=== PATIENT | female | born 1930 | race Caucasian/White ===

== ENCOUNTER 2020-08-19 18:21 | Inpatient (IN) | payer MEDICARE, OTHER ==
[~2020-08-19] VITALS: Ht 167.6 cm; Wt 66.2 kg
[~2020-08-19 18:21] MED LIST: PIPERACILLIN SODIUM/TAZOBACTAM 3.375 G in IV DEXTROSE 5% 50 ML IV SCH
[2020-08-19] MEDS ORDERED: VANCOMYCIN IV 1,000 MG in IV DEXTROSE 5% 250 ML IV ONE (18:30)
[2020-08-19] MEDS ORDERED: IV NORMAL SALINE 1000 ML BAG IV ONE (18:30)
[2020-08-19] MEDS ORDERED: PIPERACILLIN SODIUM/TAZOBACTAM 3.375 G in IV DEXTROSE 5% 50 ML IV ONE (18:30)
[2020-08-19] MEDS ORDERED: ZOLP5TAB2 GT (18:41)
[2020-08-19] MEDS ORDERED: ZINC SULFATE GT (18:41)
[2020-08-19] MEDS ORDERED: MULT-594 GT (18:41)
[2020-08-19] MEDS ORDERED: NA P133E RC (18:41)
[2020-08-19] MEDS ORDERED: DOCU-141 GT (18:41)
[2020-08-19] MEDS ORDERED: LINE600I9 IV (18:41)
[2020-08-19] MEDS ORDERED: CEFT1FRO2 IV (18:41)
[2020-08-19] MEDS ORDERED: [UNRECOGNIZED DRUG - CODE] TOP (18:41)
[2020-08-19] MEDS ORDERED: ONDANSETRON IV (18:41)
[2020-08-19] MEDS ORDERED: ACET-2154 GT (18:41)
[2020-08-19] MEDS ORDERED: ASCO500P18 GT (18:41)
[2020-08-19] MEDS ORDERED: COLL1POW2 TOP (18:41)
[2020-08-19] MEDS ORDERED: VANCOMYCIN IV 200 ML ONE (18:50)
[2020-08-19] MEDS ORDERED: PIPERACILLIN/TAZOBACTAM/D5W 50 ML IV ONE (18:50)
[2020-08-19 19:03] LABS: HEMATOCRIT 32.6 % (31.2-41.9); MEAN CORPUSCULAR HEMOGLOBIN 29.8 uug (24.7-32.8); MEAN CORPUSCULAR VOLUME 91.8 fL (75.5-95.3); PLATELET COUNT (AUTO) 197 K/uL (179-408)
[2020-08-19 19:10] LABS: CARBON DIOXIDE 28 mmol/L (21-32); CHLORIDE 106 mmol/L (98-107); CREATININE 0.5 mg/dL (0.6-1.3); GLUCOSE 148 mg/dL (74-106); POTASSIUM 4.2 mmol/L (3.5-5.1); UREA NITROGEN, BLOOD 19 mg/dL (7-18)
[2020-08-19 19:24] LABS: *BILIRUBIN,URIN NEGATIVE (NEGATIVE); *BLOOD, URINE 1+ (NEGATIVE); *CLARITY,URINE CLEAR (CLEAR); *COLOR,URINE YELLOW (YELLOW); *KETONES,URINE NEGATIVE (NEGATIVE); LEUKOCYTE ESTERASE ,URINE NEGATIVE (NEGATIVE); NITRITE, URINE NEGATIVE (NEGATIVE); PH,URINE 5.5 (5.0-8.0); UGLUCOSE NEGATIVE (NEGATIVE)
[2020-08-19 19:27] LABS: ALANINE AMINOTRANSFERASE 14 U/L (14-59); ALKALINE PHOSPHATASE 148 U/L (50-136); ASPARTATE AMINOTRANSFERASE 19 U/L (15-37); BILIRUBIN,DIRECT 0.1 mg/dL (0.0-0.2); BILIRUBIN,TOTAL 0.3 mg/dL (0.2-1.0); TOTAL PROTEIN, SERUM 5.6 g/dL (6.4-8.2)
[2020-08-19 19:33] LABS: BACTERIA,URINE NONE SEEN /HPF (NONE SEEN); SQUAMOUS EPITHELIAL CELL,UR MODERATE /HPF (NONE SEEN); WBC,URINE 0-3 /HPF (0-3)
--- NOTE | 2020-08-19 21:09 | NUR ---
Pt. admitted to Telemetry, under care of Dr. Valle. Diagnosis: Altered LOC/Neutrophilia/Possible Pneumonitis Belongs List completed. MRSA swab done.
--- NOTE | 2020-08-19 22:21 | NUR ---
Report given. Pt going to Room 306.
[2020-08-19] MEDS ORDERED: ONDANSETRON 4 MG/2 ML VIAL IV PRN (22:30)
[2020-08-19] MEDS ORDERED: ACETAMINOPHEN 650 MG SUPP.RECT RC PRN (22:30)
[2020-08-19] MEDS ORDERED: MORPHINE SULFATE 2 MG/1 ML DISP.SYRIN IV PRN (22:30)
[2020-08-19 23:00] VITALS: BP 138/63
[2020-08-19] MEDS ORDERED: PIPERACILLIN/TAZOBACTAM/D5W 100 ML IV ONE (23:34)
[2020-08-19] MEDS: PIPERACILLIN SODIUM/TAZOBACTAM 3.375 G in IV DEXTROSE 5% 50 ML IV SCH (23:56)
[2020-08-20 04:00] VITALS: BP 105/55
[2020-08-20] MEDS: PIPERACILLIN SODIUM/TAZOBACTAM 3.375 G in IV DEXTROSE 5% 50 ML IV SCH ×3 (06:05→17:27)
[2020-08-20 07:18] LABS: HEMATOCRIT 28.6 % (31.2-41.9); MEAN CORPUSCULAR HEMOGLOBIN 30.1 uug (24.7-32.8); MEAN CORPUSCULAR VOLUME 91.3 fL (75.5-95.3); PLATELET COUNT (AUTO) 171 K/uL (179-408)
[2020-08-20 07:35] LABS: IRON, SERUM 18 ug/dL (50-175)
[2020-08-20 07:45] LABS: THYROID STIMULATING HORMONE 6.469 mIU/mL (0.358-3.740)
[2020-08-20 07:49] LABS: ALANINE AMINOTRANSFERASE 17 U/L (14-59); ALKALINE PHOSPHATASE 134 U/L (50-136); ASPARTATE AMINOTRANSFERASE 27 U/L (15-37); BILIRUBIN,TOTAL 0.4 mg/dL (0.2-1.0); CARBON DIOXIDE 29 mmol/L (21-32); CHLORIDE 107 mmol/L (98-107); CHOLESTEROL 99 mg/dL (<200); CREATININE 0.5 mg/dL (0.6-1.3); GLUCOSE 106 mg/dL (74-106); HDL CHOLESTEROL 33 mg/dL (40-60); MAGNESIUM 2.1 mg/dL (1.8-2.4); PHOSPHOROUS 2.8 mg/dL (2.5-4.9); POTASSIUM 4.1 mmol/L (3.5-5.1); TOTAL PROTEIN, SERUM 4.9 g/dL (6.4-8.2); TRIGLYCERIDES 70 MG/DL (30-150); UREA NITROGEN, BLOOD 14 mg/dL (7-18)
--- NOTE | 2020-08-20 08:00 | NUR ---
PATIENT SLIGHTLY DIFFICULT TO AROUSE BUT RESISTANCE NOTED WHEN TURNED TO SIDES, SKIN WARM AND DRY, SR ON MONITOR. VS WNL. WILL CONTINUE TO OBSERVE
[2020-08-20] MEDS: PANTOPRAZOLE SODIUM 40 MG VIAL IV SCH (08:20)
--- NOTE | 2020-08-20 11:36 | NUR ---
WOUND CARE CONSULT; PT PRESENTS WITH SACRAL SCARRING, RT HIP STAGE 4 PURULENT ULCER,PRESENT ON ADMISSION. RECOMMENDATIONS MADE FOR SKIN PROTECTION AND WOUND CARE. DR SAMUELS NOTIFIED OF SURGICAL CONSULT REQUEST. DISCUSSED WOUND TREATMENT WITH KARLEY RYAN [facility] ON ORDER. IN AGREEMENT WITH PLAN OF CARE. Addendum: 08/20/20 at 1138 by KATELYN LLAMAS RN Amended: Links added.
[2020-08-20] MEDS ORDERED: JEVITY 1.2 1000 ML LIQUID GT PRN (11:45)
[2020-08-20 11:50] VITALS: BP 111/57
[2020-08-20] MEDS: MINERAL OIL/PETROLATUM,WHITE 57 GM TUBE TOP SCH (12:59)
[2020-08-20] MEDS: SODIUM HYPOCHLORITE 0.125% (QUARTER STRENGTH) 473 ML BOTTLE TP SCH (12:59)
[2020-08-20 13:33] LABS: BAND % (MANUAL) 1 % (0-10); EOSINOPHILS % (MANUAL) 1 % (0-8); LYMPHOCYTES % (MANUAL) 8 % (20-40); MONOCYTES % (MANUAL) 16 % (2-10); NEUTROPHILS % (MANUAL) 74 % (42-75)
[2020-08-20] MEDS ORDERED: LIDOCAINE 1%-EPI 1:100,000 20 ML VIAL IJ PRN (14:19)
[2020-08-20] MEDS ORDERED: SILVER NITRATE APPLICATOR STICK EACH TP PRN (14:30)
--- NOTE | 2020-08-20 14:30 | NUR ---
NOTED DAUGHTER IN THE ROOM AND SPOKE WITH REVENUE AGENT MODESTO ABOUT DC PLAN SEE NOTES
[2020-08-20 16:00] VITALS: BP 113/43
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
--- NOTE | 2020-08-20 17:41 | NUR ---
APS STAFF CAME BY AND SAW PATIENT, SPOKE WITH BRIONNA PELLETIER SEE NOTES
--- NOTE | 2020-08-20 19:30 | NUR ---
RECEIVED PT AWAKE IN BED. PT IN NO ACUTE DISTRESS. IV INTACT. PEG TUBE INTACT AND PT TOLERATING THE FEEDING WELL. ZACARIAS INTACT AND DRAINING YELLOW COLORED URINE. SAFETY AND COMFORT PROVIDED. WILL CONTINUE TO MONITOR.
--- NOTE | 2020-08-20 19:31 | NUR ---
Noted to have bruises bilateral arms. Scabs on right arm. Bilateral legs skin dryness. Redness on chest. Mónica Hermosillo saw the pt and did wound treatment. Pt stable.
[2020-08-20 20:03] VITALS: BP 113/48
[2020-08-20] MEDS: VANCOMYCIN IV 750 MG in IV DEXTROSE 5% 250 ML IV SCH (20:06)
[2020-08-20] MEDS ORDERED: BISACODYL 10 MG SUPP.RECT RC PRN (21:00)
[2020-08-20] MEDS: ACIDOPHILUS/BULGARICUS CHEW TAB GT SCH (21:49)
[2020-08-21] MEDS: PIPERACILLIN SODIUM/TAZOBACTAM 3.375 G in IV DEXTROSE 5% 50 ML IV SCH ×3 (00:55→16:37)
[2020-08-21 04:03] VITALS: BP 123/54
[2020-08-21] MEDS: LEVOTHYROXINE SODIUM 25 MCG TABLET GT SCH (06:00)
--- NOTE | 2020-08-21 06:05 | NUR ---
PT SLEPT INTERMITTENTLY. PT IN NO ACUTE DISTRESS. PRESCRIBED MEDICATION GIVEN AND PT TOLERATED IT WELL. MORPHINE 2MG PRN GIVEN AT 2008H FOR PAIN.ZACARIAS DRAINING WELL. GTUBE FEEDING TOLERATING WELL FROM 20 NOW TO 60CC/HR. PT STABLE. SAFETY AND COMFORT PROVIDED. ALL NEEDS ARE MET. WILL ENDORSE TO INCOMING NURSE FOR CONTINUITY OF CARE.
[2020-08-21 06:53] LABS: HEMATOCRIT 28.6 % (31.2-41.9); MEAN CORPUSCULAR HEMOGLOBIN 30.3 uug (24.7-32.8); MEAN CORPUSCULAR VOLUME 90.6 fL (75.5-95.3); PLATELET COUNT (AUTO) 169 K/uL (179-408)
[2020-08-21 07:01] LABS: ALANINE AMINOTRANSFERASE 17 U/L (14-59); ALKALINE PHOSPHATASE 135 U/L (50-136); ASPARTATE AMINOTRANSFERASE 22 U/L (15-37); BILIRUBIN,TOTAL 0.4 mg/dL (0.2-1.0); CARBON DIOXIDE 31 mmol/L (21-32); CHLORIDE 107 mmol/L (98-107); CREATININE 0.5 mg/dL (0.6-1.3); GLUCOSE 106 mg/dL (74-106); PHOSPHOROUS 3.3 mg/dL (2.5-4.9); POTASSIUM 4.2 mmol/L (3.5-5.1); TOTAL PROTEIN, SERUM 4.9 g/dL (6.4-8.2); UREA NITROGEN, BLOOD 13 mg/dL (7-18)
--- NOTE | 2020-08-21 08:00 | NUR ---
MORE AWAKE AND RESPONSIVE WITH TOUCH OR VERBAL STIMULI, NO SIGNS OF DISTRESS OR SOB. TOLERATING FEEDING WELL. CONTINUE WITH IV ANTIBIOTIC NO ADVERSE REACTION NOTED
[2020-08-21] MEDS: PANTOPRAZOLE SODIUM 40 MG VIAL IV SCH (08:12)
[2020-08-21] MEDS: ZINC SULFATE 220 MG CAPSULE GT SCH (08:12)
[2020-08-21] MEDS: PROTEIN SUPPLEMENT (PROSTAT) 30 ML LIQUID GT SCH ×3 (08:13→16:42)
[2020-08-21] MEDS: ASCORBIC ACID 500 MG TABLET GT SCH (08:13)
[2020-08-21] MEDS: ACIDOPHILUS/BULGARICUS CHEW TAB GT SCH ×2 (08:13→21:37)
[2020-08-21] MEDS: SODIUM HYPOCHLORITE 0.125% (QUARTER STRENGTH) 473 ML BOTTLE TP SCH (08:14)
[2020-08-21] MEDS: MINERAL OIL/PETROLATUM,WHITE 57 GM TUBE TOP SCH (08:16)
[2020-08-21 11:00] VITALS: BP 135/57
--- NOTE | 2020-08-21 12:00 | NUR ---
AFEBRILE COMPLETE BED BATH DONE AFTER WOUND CARE. NOTED WOUND WITH MODERATE YELLOW DRAINAGE PACKED WITH DAKINS SOLUTION ORDERED
[2020-08-21] MEDS: JEVITY 1.2 1000 ML LIQUID GT PRN ×2 (12:21→17:38)
[2020-08-21 14:15] LABS: BAND % (MANUAL) 2 % (0-10); EOSINOPHILS % (MANUAL) 2 % (0-8); LYMPHOCYTES % (MANUAL) 5 % (20-40); MONOCYTES % (MANUAL) 19 % (2-10); NEUTROPHILS % (MANUAL) 72 % (42-75)
[2020-08-21 16:00] VITALS: BP 143/61
--- NOTE | 2020-08-21 18:33 | NUR ---
NO ACUTE CHANGE FROM MORNING ASSESSMENT, TOLERATING FEEDING AT 70 MLS/HR. CONTINUE IV ANTIBIOTIC NO SS OF ALLERGY REACTION. AIR MATTRESS IN PLACE
--- NOTE | 2020-08-21 19:30 | NUR ---
RECEIVED PT AWAKE, ALERT AND ORIENTEDX2. DAUGHTER AT BEDSIDE. PT IN NO ACUTE DISTRESS. IV INTACT,. ZACARIAS INTACT AND DRAINING WELL. GTUBE FEEDING ONGOING AND PT TOLERATING WELL. SAFETY AND COMFORT PROVIDED. WILL CONTINUE TO MONITOR.
[2020-08-21] MEDS: VANCOMYCIN IV 750 MG in IV DEXTROSE 5% 250 ML IV SCH (19:51)
[2020-08-21 20:06] VITALS: BP 144/75
[2020-08-21] MEDS: ACETAMINOPHEN 650 MG/20.3 ML LIQUID UDC GT PRN (22:00)
[2020-08-22] MEDS: PIPERACILLIN SODIUM/TAZOBACTAM 3.375 G in IV DEXTROSE 5% 50 ML IV SCH ×3 (00:56→16:54)
[2020-08-22 05:20] VITALS: BP 139/64
[2020-08-22] MEDS: PANTOPRAZOLE ORAL SUSPENSION 40 MG SUSPDR.PKT GT SCH (05:28)
[2020-08-22] MEDS: LEVOTHYROXINE SODIUM 25 MCG TABLET GT SCH (06:23)
--- NOTE | 2020-08-22 06:26 | NUR ---
PT SLEPT INTERMITTENTLY. PT IN NO ACUTE DISTRESS. DR. BARBOZA ORDERED TYLENOL PRN 650 MG LIQUID FOR PT. [place] [id number] TYLENOL PRN GIVEN TO PT. PT TOLERATED IT WELL. PRESCRIBED MEDICATION GIVEN AND PT TOLERATED IT WELL. IV INTACT. ZACARIAS CATHETER INTACT AND DRAINING WELL. PT TURNED AND REPOSITIONED. WOUND DRESSING CHANGED. GTUBE FEEDING OFF AT 0600H AND ON AT 0800H. PT TOLERATING GTUBE FEEDING. PT STABLE. PT PLEASANTLY CONFUSED AND REDIRECTABLE. SAFETY AND COMFORT PROVIDED. WILL ENDORSE TO INCOMING NURSE FOR CONTINUITY OF CARE.
[2020-08-22 07:04] LABS: HEMATOCRIT 27.6 % (31.2-41.9); MEAN CORPUSCULAR HEMOGLOBIN 30.4 uug (24.7-32.8); MEAN CORPUSCULAR VOLUME 90.1 fL (75.5-95.3); PLATELET COUNT (AUTO) 165 K/uL (179-408)
--- NOTE | 2020-08-22 07:20 | NUR ---
RECEIVED RESTING BUT EASILY AROUSABLE AND RESPONSIVE. HOB ELEVATED. GARBLED SPEECH. IN NO ACUTE DISTRESS. GT INTACT AND PATENT. ZACARIAS CATHETER DRAINING YELLOW URINE. IV INTACT AND PATENT. BED LOW AND LOCKED. SAFETY MAINTAINED. KEPT COMFORTABLE. CONTINUE TO MONITOR.
[2020-08-22 07:28] LABS: CREATININE 0.6 mg/dL (0.6-1.3); MAGNESIUM 2.2 mg/dL (1.8-2.4); PHOSPHOROUS 3.1 mg/dL (2.5-4.9); POTASSIUM 4.6 mmol/L (3.5-5.1)
[2020-08-22 07:33] VITALS: BP 122/49
[2020-08-22] MEDS: ACIDOPHILUS/BULGARICUS CHEW TAB GT SCH ×2 (08:21→20:48)
[2020-08-22] MEDS: ASCORBIC ACID 500 MG TABLET GT SCH (08:21)
[2020-08-22] MEDS: ZINC SULFATE 220 MG CAPSULE GT SCH (08:21)
[2020-08-22] MEDS: PROTEIN SUPPLEMENT (PROSTAT) 30 ML LIQUID GT SCH ×3 (08:21→17:35)
[2020-08-22] MEDS: MINERAL OIL/PETROLATUM,WHITE 57 GM TUBE TOP SCH (08:22)
[2020-08-22] MEDS: SODIUM HYPOCHLORITE 0.125% (QUARTER STRENGTH) 473 ML BOTTLE TP SCH (08:23)
[2020-08-22 10:51] LABS: LYMPHOCYTES % (MANUAL) 6 % (20-40); MONOCYTES % (MANUAL) 21 % (2-10); NEUTROPHILS % (MANUAL) 73 % (42-75)
[2020-08-22 11:35] VITALS: BP 133/48
[2020-08-22] MEDS ORDERED: FLEET ENEMA 133 ML BOTTLE RC PRN (13:15)
[2020-08-22 16:00] VITALS: BP 114/43
--- NOTE | 2020-08-22 17:47 | NUR ---
Called Micro and f/u with blood cx. Per micro bld cx is still not available.
--- NOTE | 2020-08-22 19:15 | NUR ---
Patient report received from day shift. Patient is alert and oriented x 1-2. No signs of distress at this time. Comfortable on room air. Patient has a wound on the right hip and sacral redness. Hendrix catheter patent. Currently getting Jevity at 70cc/hr. IV on the left forearm patent. Fall and safety precautions in place. Will continue to monitor.
--- NOTE | 2020-08-22 19:21 | NUR ---
SLEPT ON/OFF THROUGHOUT THE SHIFT. NO ACUTE DISTRESS. ON IV ATB TOLERATED. NO ADVERSE REACTIONS NOTED. ENDORSED TO MAKEUP INSTRUCTOR RN TO HOLD VANCO IF TROUGH >20 PER PHARMACY. FC DRAINING PALE YELLOW URINE. NO HEMATURIA. GT FEEDING TOLERATED. NO NAUSEA OR VOMITING NOTED. NO S/SX OF PAIN. DTR CAME VISIT NO COMPLAINTS AND SPOKE WITH DR. ALEXANDER. PATIENT IS KEPT COMFORTABLE. NEEDS ATTENDED. ENDORSED FOR CONTINUITY OF CARE.
[2020-08-22 20:16] VITALS: BP 128/53
[2020-08-23] MEDS: PIPERACILLIN SODIUM/TAZOBACTAM 3.375 G in IV DEXTROSE 5% 50 ML IV SCH ×2 (00:56→08:14)
[2020-08-23 04:05] VITALS: BP 134/53
[2020-08-23] MEDS: PANTOPRAZOLE ORAL SUSPENSION 40 MG SUSPDR.PKT GT SCH (06:21)
[2020-08-23] MEDS: LEVOTHYROXINE SODIUM 25 MCG TABLET GT SCH (06:21)
--- NOTE | 2020-08-23 07:25 | NUR ---
RECEIVED RESTING BUT EASILY AROUSABLE. HOB ELEVATED. IN NO ACUTE DISTRESS COMFORTABLE ON ROOM AIR. ZACARIAS CATHETER PATENT. GT INTACT AND PATENT. IN ON LFA INTACT AND PATENT. FALL AND SAFETY PRECAUTIONS MAINTAINED.
--- NOTE | 2020-08-23 07:38 | NUR ---
Patient resting in bed. Slept well through the night. Awake, alert and oriented x 1-2. Patient received an enema over night, no bowel movement at this time. Comfortable on room air. No signs of distress or shortness of breath at this time. Fall and safety precautions in place.
[2020-08-23] MEDS: MULTIVITAMINS,THERAPEUTIC TABLET GT SCH (08:13)
[2020-08-23] MEDS: ACIDOPHILUS/BULGARICUS CHEW TAB GT SCH ×2 (08:13→21:07)
[2020-08-23] MEDS: ASCORBIC ACID 500 MG TABLET GT SCH (08:13)
[2020-08-23] MEDS: ZINC SULFATE 220 MG CAPSULE GT SCH (08:13)
[2020-08-23] MEDS: PROTEIN SUPPLEMENT (PROSTAT) 30 ML LIQUID GT SCH ×2 (08:14→12:13)
[2020-08-23] MEDS: MINERAL OIL/PETROLATUM,WHITE 57 GM TUBE TOP SCH (08:15)
[2020-08-23] MEDS: SODIUM HYPOCHLORITE 0.125% (QUARTER STRENGTH) 473 ML BOTTLE TP SCH (08:15)
[2020-08-23] MEDS ORDERED: Medication Not On Formulary EA (Multivitamins (Multivitamin) 1 EACH) GT SCH (09:00)
[2020-08-23 09:29] LABS: *OCCULT BLOOD STOOL NEGATIVE (NEGATIVE)
[2020-08-23] MEDS: JEVITY 1.2 1000 ML LIQUID GT PRN (11:37)
[2020-08-23 12:00] VITALS: BP 114/49
[2020-08-23 16:00] VITALS: BP 119/42
[2020-08-23] MEDS: CEFEPIME HCL 2 G in IV DEXTROSE 5% 100 ML IV SCH (16:21)
[2020-08-23] MEDS ORDERED: PIPERACILLIN SODIUM/TAZOBACTAM 3.37 G in IV DEXTROSE 5% 100 ML IV SCH (17:00)
--- NOTE | 2020-08-23 18:57 | NUR ---
PATIENT SLEPT ON.OFF THROUGHOUT THE DAY. VISITED BY DTR. NO COMPLAINTS. IN NO ACUTE DISTRESS. COMFORTABLE ON ROOM AIR. GT FEEDING TOLERATED. NO NAUSEA OR VOMITING NOTED. ZACARIAS CATHETER INTACT AND PATENT. NO HEMATURIA. IV INTACT AND PATENT. KEPT COMFORTABLE. SAFETY AND FALL PRECAUTIONS MAINTAINED.
--- NOTE | 2020-08-23 19:50 | NUR ---
Patient alert but with confusion, hob elevated, on GTF tolerate well no nausea no vomiting noted. Patient was turn and reposition, oblanos cath patent, draining with yellow color urine in moderate amount. patient has no s/s of pain at this time, cont to monitor.
[2020-08-23 20:18] VITALS: BP 120/51
[2020-08-24] MEDS: CEFEPIME HCL 2 G in IV DEXTROSE 5% 100 ML IV SCH ×2 (03:56→15:35)
[2020-08-24 04:46] VITALS: BP 113/48
[2020-08-24] MEDS: LEVOTHYROXINE SODIUM 25 MCG TABLET GT SCH (06:02)
[2020-08-24] MEDS: PANTOPRAZOLE ORAL SUSPENSION 40 MG SUSPDR.PKT GT SCH (06:02)
[2020-08-24 06:58] LABS: HEMATOCRIT 26.8 % (31.2-41.9); MEAN CORPUSCULAR HEMOGLOBIN 30.7 uug (24.7-32.8); MEAN CORPUSCULAR VOLUME 91.5 fL (75.5-95.3); PLATELET COUNT (AUTO) 170 K/uL (179-408)
[2020-08-24 07:15] LABS: ALANINE AMINOTRANSFERASE 24 U/L (14-59); ALKALINE PHOSPHATASE 132 U/L (50-136); ASPARTATE AMINOTRANSFERASE 24 U/L (15-37); BILIRUBIN,TOTAL 0.2 mg/dL (0.2-1.0); CARBON DIOXIDE 28 mmol/L (21-32); CHLORIDE 106 mmol/L (98-107); CREATININE 0.5 mg/dL (0.6-1.3); GLUCOSE 107 mg/dL (74-106); MAGNESIUM 2.2 mg/dL (1.8-2.4); PHOSPHOROUS 2.5 mg/dL (2.5-4.9); POTASSIUM 4.6 mmol/L (3.5-5.1); UREA NITROGEN, BLOOD 20 mg/dL (7-18)
[2020-08-24 07:21] LABS: NEUTROPHILS % (MANUAL) 0 % (42-75)
--- NOTE | 2020-08-24 08:00 | NUR ---
resting comfortably in bed no ss of pain or distress. continue current tx plan for uti and wound care. sfebrile
[2020-08-24] MEDS: MULTIVITAMINS,THERAPEUTIC TABLET GT SCH (08:46)
[2020-08-24] MEDS: ASCORBIC ACID 500 MG TABLET GT SCH (08:46)
[2020-08-24] MEDS: ACIDOPHILUS/BULGARICUS CHEW TAB GT SCH ×2 (08:46→20:43)
[2020-08-24] MEDS: ZINC SULFATE 220 MG CAPSULE GT SCH (08:46)
[2020-08-24] MEDS: SODIUM HYPOCHLORITE 0.125% (QUARTER STRENGTH) 473 ML BOTTLE TP SCH (08:47)
[2020-08-24] MEDS: MINERAL OIL/PETROLATUM,WHITE 57 GM TUBE TOP SCH (08:47)
[2020-08-24 11:43] VITALS: BP 116/41
--- NOTE | 2020-08-24 12:00 | NUR ---
no acute change from am assessment. afebrile
[2020-08-24 15:56] VITALS: BP 102/33
--- NOTE | 2020-08-24 17:41 | NUR ---
CONTINUE with IV ANTIBIOTICS FOR UTI AND infected wound, no adverse reaction noted. tolerated feeding well
--- NOTE | 2020-08-24 19:00 | NUR ---
Patient awake, daughter at bedside, no s/s of pain at this time, dressing on r hip intact, bolanos cath intact, cont to monitor.
[2020-08-24 20:18] VITALS: BP 117/51
[2020-08-24] MEDS: ACETAMINOPHEN 650 MG/20.3 ML LIQUID UDC GT PRN (23:23)
[2020-08-24] MEDS: JEVITY 1.2 1000 ML LIQUID GT PRN (23:24)
--- NOTE | 2020-08-24 23:31 | NUR ---
Patient awake, hand kept moving, unable to tell if she's on pain. Patient was given tylenol 650mg via gt for pain and comfort, cont to monitor.
[2020-08-25] MEDS: CEFEPIME HCL 2 G in IV DEXTROSE 5% 100 ML IV SCH ×2 (03:49→15:47)
[2020-08-25 04:30] VITALS: BP 112/46
--- NOTE | 2020-08-25 05:53 | NUR ---
Patient awake but with confusion, hob elevated tolerate GTF, no nausea no vomiting noted, bolanos cath patent, tx done on r hip wound, patient has episode of pinching herself on chest area, kept chest area with linen to protect skin, cont to monitor.
[2020-08-25] MEDS: PANTOPRAZOLE ORAL SUSPENSION 40 MG SUSPDR.PKT GT SCH (06:06)
[2020-08-25] MEDS: LEVOTHYROXINE SODIUM 25 MCG TABLET GT SCH (06:06)
[2020-08-25 06:28] LABS: HEMATOCRIT 27.6 % (31.2-41.9); MEAN CORPUSCULAR HEMOGLOBIN 30.1 uug (24.7-32.8); MEAN CORPUSCULAR VOLUME 90.5 fL (75.5-95.3); PLATELET COUNT (AUTO) 172 K/uL (179-408)
[2020-08-25 06:46] LABS: CARBON DIOXIDE 30 mmol/L (21-32); CHLORIDE 106 mmol/L (98-107); CREATININE 0.5 mg/dL (0.6-1.3); GLUCOSE 116 mg/dL (74-106); MAGNESIUM 2.4 mg/dL (1.8-2.4); PHOSPHOROUS 2.8 mg/dL (2.5-4.9); POTASSIUM 4.6 mmol/L (3.5-5.1); UREA NITROGEN, BLOOD 20 mg/dL (7-18)
--- NOTE | 2020-08-25 07:20 | NUR ---
Patient resting hob elevated. Breathing non labored. Comfortable on room air. Hendrix catheter patent. GT intact. Kept comfortable. Will continue to monitor. Safety and fall precautions maintained.
[2020-08-25] MEDS: MULTIVITAMINS,THERAPEUTIC TABLET GT SCH (08:13)
[2020-08-25] MEDS: ZINC SULFATE 220 MG CAPSULE GT SCH (08:13)
[2020-08-25] MEDS: ASCORBIC ACID 500 MG TABLET GT SCH (08:13)
[2020-08-25] MEDS: ACIDOPHILUS/BULGARICUS CHEW TAB GT SCH ×2 (08:13→20:36)
[2020-08-25] MEDS: SODIUM HYPOCHLORITE 0.125% (QUARTER STRENGTH) 473 ML BOTTLE TP SCH (08:16)
[2020-08-25] MEDS: MINERAL OIL/PETROLATUM,WHITE 57 GM TUBE TOP SCH (08:16)
[2020-08-25 12:00] VITALS: BP 125/53
[2020-08-25 13:12] LABS: BAND % (MANUAL) 4 % (0-10); EOSINOPHILS % (MANUAL) 2 % (0-8); LYMPHOCYTES % (MANUAL) 4 % (20-40); MONOCYTES % (MANUAL) 17 % (2-10); NEUTROPHILS % (MANUAL) 73 % (42-75)
[2020-08-25 16:00] VITALS: BP 112/49
[2020-08-25] MEDS: JEVITY 1.2 1000 ML LIQUID GT PRN (18:00)
--- NOTE | 2020-08-25 18:59 | NUR ---
Resting but easily arousable. Hob elevated. Gt feeding tolerated. No nausea or vomiting. Patient calm throughout the shift. Dtr came to visit. No complaints. Safety and fall precautions maintained. Needs attended.
[2020-08-25 20:42] VITALS: BP 120/50
[2020-08-26] MEDS: CEFEPIME HCL 2 G in IV DEXTROSE 5% 100 ML IV SCH ×2 (03:18→16:02)
[2020-08-26 04:35] VITALS: BP 136/59
--- NOTE | 2020-08-26 06:03 | NUR ---
Pt slept intermittently throughout the night. No distress noted. Medications tolerated well. Wound care to sacrum and right hip done. GTube flushed and stopped at 0600H to resume at 0800H. Safety and comfort provided. No other issues or concerns at this time, will endorse to oncoming shift.
[2020-08-26] MEDS: LEVOTHYROXINE SODIUM 25 MCG TABLET GT SCH (06:16)
[2020-08-26] MEDS: PANTOPRAZOLE ORAL SUSPENSION 40 MG SUSPDR.PKT GT SCH (06:16)
[2020-08-26 06:26] LABS: HEMATOCRIT 28.7 % (31.2-41.9); MEAN CORPUSCULAR HEMOGLOBIN 30.1 uug (24.7-32.8); MEAN CORPUSCULAR VOLUME 91.3 fL (75.5-95.3); PLATELET COUNT (AUTO) 188 K/uL (179-408)
[2020-08-26 06:48] LABS: CARBON DIOXIDE 28 mmol/L (21-32); CHLORIDE 105 mmol/L (98-107); CREATININE 0.5 mg/dL (0.6-1.3); GLUCOSE 130 mg/dL (74-106); POTASSIUM 4.6 mmol/L (3.5-5.1); UREA NITROGEN, BLOOD 20 mg/dL (7-18)
[2020-08-26 09:00] VITALS: BP 134/57
[2020-08-26] MEDS: ASCORBIC ACID 500 MG TABLET GT SCH (10:02)
[2020-08-26] MEDS: ACIDOPHILUS/BULGARICUS CHEW TAB GT SCH ×2 (10:02→21:24)
[2020-08-26] MEDS: MULTIVITAMINS,THERAPEUTIC TABLET GT SCH (10:03)
[2020-08-26] MEDS: ZINC SULFATE 220 MG CAPSULE GT SCH (10:03)
[2020-08-26] MEDS: SODIUM HYPOCHLORITE 0.125% (QUARTER STRENGTH) 473 ML BOTTLE TP SCH (10:04)
[2020-08-26] MEDS: MINERAL OIL/PETROLATUM,WHITE 57 GM TUBE TOP SCH (10:05)
[2020-08-26 12:00] VITALS: BP 121/47
[2020-08-26] MEDS: METRONIDAZOLE 500 MG/NS 100ML 500 MG in PREMIXED 1 EACH IV SCH ×2 (14:26→21:25)
[2020-08-26 16:00] VITALS: BP 108/46
[2020-08-26] MEDS: ARGININE/GLUTAMINE/CALCIUM BMB 1 EACH POWD.PACK GT SCH (17:19)
[2020-08-26 20:10] VITALS: BP 118/56
[2020-08-27] MEDS: JEVITY 1.2 1000 ML LIQUID GT PRN ×2 (03:05→14:59)
[2020-08-27] MEDS: CEFEPIME HCL 2 G in IV DEXTROSE 5% 100 ML IV SCH ×2 (03:40→16:12)
[2020-08-27 04:10] VITALS: BP 129/58
[2020-08-27] MEDS: METRONIDAZOLE 500 MG/NS 100ML 500 MG in PREMIXED 1 EACH IV SCH ×3 (05:53→22:15)
[2020-08-27] MEDS: PANTOPRAZOLE ORAL SUSPENSION 40 MG SUSPDR.PKT GT SCH (05:54)
[2020-08-27] MEDS: LEVOTHYROXINE SODIUM 25 MCG TABLET GT SCH (05:54)
[2020-08-27 06:59] LABS: HEMATOCRIT 28.2 % (31.2-41.9); MEAN CORPUSCULAR HEMOGLOBIN 29.9 uug (24.7-32.8); MEAN CORPUSCULAR VOLUME 90.5 fL (75.5-95.3); PLATELET COUNT (AUTO) 202 K/uL (179-408)
[2020-08-27 07:21] LABS: ALANINE AMINOTRANSFERASE 28 U/L (14-59); ALKALINE PHOSPHATASE 132 U/L (50-136); ASPARTATE AMINOTRANSFERASE 29 U/L (15-37); BILIRUBIN,TOTAL 0.3 mg/dL (0.2-1.0); CARBON DIOXIDE 29 mmol/L (21-32); CHLORIDE 104 mmol/L (98-107); CREATININE 0.5 mg/dL (0.6-1.3); GLUCOSE 119 mg/dL (74-106); MAGNESIUM 2.2 mg/dL (1.8-2.4); PHOSPHOROUS 2.7 mg/dL (2.5-4.9); POTASSIUM 5.1 mmol/L (3.5-5.1); TOTAL PROTEIN, SERUM 5.3 g/dL (6.4-8.2); UREA NITROGEN, BLOOD 28 mg/dL (7-18)
--- NOTE | 2020-08-27 07:30 | NUR ---
Patient received on first step mattress with eyes closed, but easily arousable. Patient is tolerating G-tube feeding with no N/V/D at this time. Left FA 22G IV is patent with no redness or swelling at this time. Right hip wound dressing is dry and intact. Hendrix is draining clear yellow/harpreet urine via gravity. Patient on room air with no SOB or difficulties breathing. No acute distress noted at this time. Call light within easy reach. Will continue to monitor.
[2020-08-27] MEDS: SODIUM HYPOCHLORITE 0.125% (QUARTER STRENGTH) 473 ML BOTTLE TP SCH (08:15)
[2020-08-27] MEDS: MINERAL OIL/PETROLATUM,WHITE 57 GM TUBE TOP SCH (08:16)
[2020-08-27] MEDS: MULTIVITAMINS,THERAPEUTIC TABLET GT SCH (08:17)
[2020-08-27] MEDS: ASCORBIC ACID 500 MG TABLET GT SCH (08:17)
[2020-08-27] MEDS: ACIDOPHILUS/BULGARICUS CHEW TAB GT SCH ×2 (08:17→20:09)
[2020-08-27] MEDS: ZINC SULFATE 220 MG CAPSULE GT SCH (08:17)
[2020-08-27] MEDS: ARGININE/GLUTAMINE/CALCIUM BMB 1 EACH POWD.PACK GT SCH ×2 (08:18→16:13)
[2020-08-27 11:31] VITALS: BP 99/45
[2020-08-27 16:04] VITALS: BP 103/43
--- NOTE | 2020-08-27 19:15 | NUR ---
Patient report received. Patient is awake, alert and oriented x1 to person. Patient seen in bed resting. Confused and disoriented. Patient has garbled speech. Comfortable on room air. Has a stage 4 injury on the right hip. On Jevity 1.2 70 cc/hr. Hendrix catheter patent, urine is harpreet in color but clear. IV on the Left forearm 22g TKO. Safety and fall precautions in place. Bed in low and locked position.
[2020-08-27 20:05] VITALS: BP 113/55
[2020-08-27 20:41] LABS: EOSINOPHILS % (MANUAL) 1 % (0-8); LYMPHOCYTES % (MANUAL) 10 % (20-40); MONOCYTES % (MANUAL) 9 % (2-10); NEUTROPHILS % (MANUAL) 80 % (42-75)
[2020-08-28] MEDS: CEFEPIME HCL 2 G in IV DEXTROSE 5% 100 ML IV SCH ×2 (03:01→16:11)
[2020-08-28 04:05] VITALS: BP 111/52
[2020-08-28] MEDS: METRONIDAZOLE 500 MG/NS 100ML 500 MG in PREMIXED 1 EACH IV SCH ×3 (05:05→21:31)
[2020-08-28] MEDS: LEVOTHYROXINE SODIUM 25 MCG TABLET GT SCH (06:00)
[2020-08-28] MEDS: PANTOPRAZOLE ORAL SUSPENSION 40 MG SUSPDR.PKT GT SCH (06:00)
--- NOTE | 2020-08-28 06:12 | NUR ---
Patient slept intermittently through the night. Alert and oriented x 1. Medications given though g-tube as ordered. No signs of distress or shortness of breath noted. Wound care provided for stage 4 hip ulcer. Bed in low and locked position. Fall and safety precautions in place.
[2020-08-28 06:24] LABS: HEMATOCRIT 27.1 % (31.2-41.9); MEAN CORPUSCULAR HEMOGLOBIN 30.4 uug (24.7-32.8); MEAN CORPUSCULAR VOLUME 90.4 fL (75.5-95.3); PLATELET COUNT (AUTO) 193 K/uL (179-408)
[2020-08-28 06:47] LABS: CARBON DIOXIDE 29 mmol/L (21-32); CHLORIDE 103 mmol/L (98-107); CREATININE 0.5 mg/dL (0.6-1.3); GLUCOSE 122 mg/dL (74-106); POTASSIUM 4.6 mmol/L (3.5-5.1); UREA NITROGEN, BLOOD 36 mg/dL (7-18)
[2020-08-28 08:09] LABS: EOSINOPHILS % (MANUAL) 1 % (0-8); LYMPHOCYTES % (MANUAL) 19 % (20-40); MONOCYTES % (MANUAL) 10 % (2-10); NEUTROPHILS % (MANUAL) 70 % (42-75)
[2020-08-28] MEDS: MULTIVITAMINS,THERAPEUTIC TABLET GT SCH (08:20)
[2020-08-28] MEDS: ZINC SULFATE 220 MG CAPSULE GT SCH (08:20)
[2020-08-28] MEDS: ACIDOPHILUS/BULGARICUS CHEW TAB GT SCH ×2 (08:20→21:30)
[2020-08-28] MEDS: ASCORBIC ACID 500 MG TABLET GT SCH (08:20)
[2020-08-28] MEDS: ARGININE/GLUTAMINE/CALCIUM BMB 1 EACH POWD.PACK GT SCH ×2 (08:21→16:41)
[2020-08-28] MEDS: MINERAL OIL/PETROLATUM,WHITE 57 GM TUBE TOP SCH (08:31)
[2020-08-28] MEDS: SODIUM HYPOCHLORITE 0.125% (QUARTER STRENGTH) 473 ML BOTTLE TP SCH (08:32)
[2020-08-28] MEDS: JEVITY 1.2 1000 ML LIQUID GT PRN ×2 (11:02→23:50)
[2020-08-28 11:36] VITALS: BP 111/55
[2020-08-28 15:27] VITALS: BP 109/52
--- NOTE | 2020-08-28 16:56 | NUR ---
Patient's daughter, Debbie, at bedside and states that she wants the patient to be DNR/DNI. Daughter states that she will bring POLST tomorrow. Will endorse to oncoming shift.
--- NOTE | 2020-08-28 19:00 | NUR ---
RECEIVED REPORT FROM AM NURSE CRUZ NO SIGNS OF DISTRESS NOTED. PT HAS GTUBE FEEDING OF JEVITY 1.2 TOLERATING WELL CHECKED RESIDUAL 10ML NO SIGNS OF RESPIRATORY DISTRESS NOTED. WILL CONTINUE TO MONITOR FOR SAFETY HOURLY.
[2020-08-28 20:00] VITALS: BP 107/50
--- NOTE | 2020-08-28 21:00 | NUR ---
PT WAS GIVEN MEDICATION AND ANTIBIOTIC ORDERED NO SIGNS OF ADVERSE REACTION NOTED WILL CONTINUE TO MONITOR HOURLY.
[2020-08-29] MEDS: CEFEPIME HCL 2 G in IV DEXTROSE 5% 100 ML IV SCH ×2 (03:59→16:11)
[2020-08-29 04:00] VITALS: BP 113/56
[2020-08-29] MEDS: PANTOPRAZOLE ORAL SUSPENSION 40 MG SUSPDR.PKT GT SCH (06:32)
[2020-08-29] MEDS: METRONIDAZOLE 500 MG/NS 100ML 500 MG in PREMIXED 1 EACH IV SCH ×3 (06:32→21:03)
[2020-08-29] MEDS: LEVOTHYROXINE SODIUM 25 MCG TABLET GT SCH (06:44)
--- NOTE | 2020-08-29 07:00 | NUR ---
PT IS ALERT RESPONDS TO TACTILE STIMULI CALM THROUGHOUT THE SHIFT. REPORT GIVEN TO AM NURSE MARCELO. NO SIGNS OF DISTRESS NOTED.
[2020-08-29] MEDS: MULTIVITAMINS,THERAPEUTIC TABLET GT SCH (09:04)
[2020-08-29] MEDS: ZINC SULFATE 220 MG CAPSULE GT SCH (09:04)
[2020-08-29] MEDS: ACIDOPHILUS/BULGARICUS CHEW TAB GT SCH ×2 (09:04→20:16)
[2020-08-29] MEDS: ASCORBIC ACID 500 MG TABLET GT SCH (09:04)
[2020-08-29] MEDS: SODIUM HYPOCHLORITE 0.125% (QUARTER STRENGTH) 473 ML BOTTLE TP SCH (09:16)
[2020-08-29] MEDS: MINERAL OIL/PETROLATUM,WHITE 57 GM TUBE TOP SCH (09:16)
[2020-08-29] MEDS: ARGININE/GLUTAMINE/CALCIUM BMB 1 EACH POWD.PACK GT SCH ×2 (09:26→17:47)
[2020-08-29 11:47] VITALS: BP 120/51
[2020-08-29] MEDS: JEVITY 1.2 1000 ML LIQUID GT PRN (14:47)
[2020-08-29] MEDS ORDERED: METR500T PO (15:22)
[2020-08-29] MEDS ORDERED: LEVO500T90 PO (15:22)
[2020-08-29 15:48] VITALS: BP 110/46
--- NOTE | 2020-08-29 18:28 | NUR ---
Patient AOx1, to person. On room air. No sign of acute distress. Patient with Hendrix Catheter patent. On Jevity 1.2 at 70ml/ hr. IV access on left FA #22 TKO. Wound care treatment done and patient tolerated well. Bed alarm on. Bed locked and in low position. Will endorse to incoming shift for continuity of care.
[2020-08-29 20:03] VITALS: BP 103/47
[2020-08-29] MEDS: ACETAMINOPHEN 650 MG/20.3 ML LIQUID UDC GT PRN (20:22)
[2020-08-30 04:06] VITALS: BP 103/70
[2020-08-30] MEDS: CEFEPIME HCL 2 G in IV DEXTROSE 5% 100 ML IV SCH ×2 (04:58→16:00)
--- NOTE | 2020-08-30 06:01 | NUR ---
Pt slept throughout the night. No distress noted. Tolerated all medications given. Running Jevity 1.2 at 70cc, tolerating well, no residual. IV site intact. Safety and comfort provided, no other issues or concerns at this time. will endorse to day shift.
[2020-08-30] MEDS: PANTOPRAZOLE ORAL SUSPENSION 40 MG SUSPDR.PKT GT SCH (06:14)
[2020-08-30] MEDS: LEVOTHYROXINE SODIUM 25 MCG TABLET GT SCH (06:14)
[2020-08-30] MEDS: METRONIDAZOLE 500 MG/NS 100ML 500 MG in PREMIXED 1 EACH IV SCH ×2 (06:14→13:17)
[2020-08-30] MEDS: ZINC SULFATE 220 MG CAPSULE GT SCH (08:41)
[2020-08-30] MEDS: MULTIVITAMINS,THERAPEUTIC TABLET GT SCH (08:41)
[2020-08-30] MEDS: ARGININE/GLUTAMINE/CALCIUM BMB 1 EACH POWD.PACK GT SCH ×2 (08:41→17:00)
[2020-08-30] MEDS: ASCORBIC ACID 500 MG TABLET GT SCH (08:42)
[2020-08-30] MEDS: MINERAL OIL/PETROLATUM,WHITE 57 GM TUBE TOP SCH (08:42)
[2020-08-30] MEDS: ACIDOPHILUS/BULGARICUS CHEW TAB GT SCH (08:42)
[2020-08-30] MEDS: SODIUM HYPOCHLORITE 0.125% (QUARTER STRENGTH) 473 ML BOTTLE TP SCH (08:42)
[2020-08-30 11:43] VITALS: BP 116/47
--- NOTE | 2020-08-30 11:54 | NUR ---
WOUND CARE CONSULT: PT SEEN FOR LEFT HEEL INTACT DEEP TISSUE INJURY. NO DRAINAGE OR TENDERNESS NOTED. RECOMMENDATIONS MADE FOR SKIN PROTECTION AND WOUND CARE. DISCUSSED WITH NURSING STAFF AND RIGGING AND CONTROLS AIRCRAFT MECHANIC. IN AGREEMENT WITH PLAN OF CARE. PT IS ON FIRST [facility]. HEELS FLOATED. Addendum: 08/30/20 at 1158 by KATELYN LLAMAS RN Amended: Links added.
[2020-08-30] MEDS: JEVITY 1.2 1000 ML LIQUID GT PRN (12:18)
--- NOTE | 2020-08-30 15:00 | NUR ---
Patient not on isolation during hospitalization.
[2020-08-30 15:51] VITALS: BP 106/41
--- NOTE | 2020-08-30 19:29 | NUR ---
Pt picked up by paramedics and left unit at 1930H in stable condition via gurney. No distress noted.
--- NOTE | 2020-08-30 19:43 | NUR ---
Discharged patient to [facility]. Patient AOx1. On room air. No signs of acute distress. Patient with bolanos catheter, patent. With Gtube. Discharge documents done. Wound pictures taken. Report given to YULIET Lynne of [facility]. Patient left via ambulance gurney.
== END 2020-08-30 19:30 | DRG 853 ==
LOC: ER 18:23 → TELE3 22:24 → MEDSURG3 08-20 10:00
PROVIDERS: ADMIT Internal Medicine; ATTEND Hospitalist
PROC: 0KBN0ZZ Excision of Right Hip Muscle, Open Approach (ICD-10-PCS; principal; 2020-08-20)
DX: A41.9 Sepsis, unspecified organism (principal); L89.214 Pressure ulcer of right hip, stage 4; E43 Unspecified severe protein-calorie malnutrition; G92 Toxic encephalopathy; D68.59 Other primary thrombophilia; F09 Unspecified mental disorder due to known physiological condition; D64.9 Anemia, unspecified; D69.6 Thrombocytopenia, unspecified; R13.10 Dysphagia, unspecified; Z90.3 Acquired absence of stomach [part of]; Z93.1 Gastrostomy status; Z20.822 Contact with and (suspected) exposure to COVID-19; F03.90 Unspecified dementia, unspecified severity, without behavioral disturbance, psychotic disturbance, mood disturbance, and anxiety; Z74.09 Other reduced mobility; Z87.440 Personal history of urinary (tract) infections; Z68.23 Body mass index [BMI] 23.0-23.9, adult; Z87.01 Personal history of pneumonia (recurrent); L89.626 Pressure-induced deep tissue damage of left heel
CPT/HCPCS: 36415; 70030-TC; 71045; 82378; 83550; 83605; 83735; 84100; 84443; 85025; 85730; 87040; 87070; 87077; 87086; 93005; 93307; A4217; A4663; C9113; G0378; J0692; J2270; J2543; J3370; J3490; J7030; J7040; J7050; J7060

== ENCOUNTER 2020-11-11 21:28 | Inpatient (IN) | payer MEDICARE, OTHER ==
[~2020-11-11] VITALS: Ht 167.6 cm; Wt 64.0 kg
[~2020-11-11 21:28] MED LIST changes: +ACET-2154 GT; +ASCO500P18 GT; +COLL1POW2 TOP; +DOCU-141 GT; +LEVO500T90 PO; +METR500T PO; +MULT-594 GT; +NA P133E RC; +ONDANSETRON IV; -PIPERACILLIN SODIUM/TAZOBACTAM 3.375 G in IV DEXTROSE 5% 50 ML IV SCH; +ZINC SULFATE GT; +ZOLP5TAB2 GT; +[UNRECOGNIZED DRUG - CODE] TOP
[2020-11-11] MEDS ORDERED: CEFEPIME HCL 2 G in IV DEXTROSE 5% 100 ML IV ONE (22:00)
[2020-11-11] MEDS ORDERED: IV NORMAL SALINE 1000 ML BAG IV ONE (22:00)
--- NOTE | 2020-11-11 22:00 | NUR ---
Patient brought in by [facility] ambulance unit 325 from [facility] for WBC 72.1. Sent in by Dr Castillo for evaluation. Pt aox0, bed bound, only responsive to painful stimuli.
[2020-11-11] MEDS ORDERED: ACETAMINOPHEN 650 MG SUPP.RECT RC PRN (22:15)
[2020-11-11] MEDS ORDERED: ONDANSETRON 4 MG/2 ML VIAL IV PRN (22:15)
[2020-11-11] MEDS ORDERED: MORPHINE SULFATE 2 MG/1 ML DISP.SYRIN IV PRN (22:15)
[2020-11-11] MEDS ORDERED: [UNRECOGNIZED DRUG - OTHER] EACHEYE (22:31)
[2020-11-11] MEDS ORDERED: ALBU2.5V38 IH (22:31)
[2020-11-11] MEDS ORDERED: MAGN400O6 PO (22:31)
[2020-11-11] MEDS ORDERED: ACET-2154 PO (22:31)
[2020-11-11] MEDS ORDERED: AMIN30LI2 GT (22:31)
[2020-11-11] MEDS ORDERED: BISA10SU61 RC (22:31)
[2020-11-11] MEDS ORDERED: vitamin d3 GT (22:31)
[2020-11-11] MEDS ORDERED: NA P133E RC (22:31)
[2020-11-11] MEDS ORDERED: HYDR-3972 GT (22:31)
[2020-11-11] MEDS ORDERED: ONDA4TAB5 GT (22:31)
[2020-11-11 22:39] LABS: HEMATOCRIT 27.4 % (31.2-41.9); MEAN CORPUSCULAR HEMOGLOBIN 28.9 uug (24.7-32.8); MEAN CORPUSCULAR VOLUME 89.3 fL (75.5-95.3); PLATELET COUNT (AUTO) 88 K/uL (179-408)
[2020-11-11 22:45] LABS: CREATININE 0.7 mg/dL (0.6-1.3); POTASSIUM 4.1 mmol/L (3.5-5.1)
[2020-11-11 22:46] LABS: MAGNESIUM 2.2 mg/dL (1.8-2.4); PHOSPHOROUS 3.3 mg/dL (2.5-4.9)
[2020-11-11 22:56] LABS: THYROID STIMULATING HORMONE 7.302 mIU/mL (0.358-3.740)
[2020-11-11 22:57] LABS: BILIRUBIN,DIRECT 0.2 mg/dL (0.0-0.2); BILIRUBIN,TOTAL 0.5 mg/dL (0.2-1.0); TOTAL PROTEIN, SERUM 5.5 g/dL (6.4-8.2)
--- NOTE | 2020-11-11 23:00 | NUR ---
Pt positioned to be comfortable. nad. vss. will continue to monitor.
[2020-11-11] MEDS ORDERED: DOXYCYCLINE HYCLATE IV 200 MG in IV DEXTROSE 5% 250 ML IV ONE (23:30)
[2020-11-11] MEDS ORDERED: VANCOMYCIN IV 1,000 MG in IV DEXTROSE 5% 250 ML IV ONE (23:30)
[2020-11-11] MEDS ORDERED: CEFEPIME HCL 1 G VIAL ONE (23:39)
--- NOTE | 2020-11-12 00:12 | NUR ---
Paged Epic panel director alumni relations for admission, waiting for Dr Kade Cristina to call back.
[2020-11-12 00:31] LABS: *BILIRUBIN,URIN NEGATIVE (NEGATIVE); *BLOOD, URINE 3+ (NEGATIVE); *COLOR,URINE YELLOW (YELLOW); *KETONES,URINE NEGATIVE (NEGATIVE); LEUKOCYTE ESTERASE ,URINE 1+ (NEGATIVE); NITRITE, URINE NEGATIVE (NEGATIVE); PH,URINE 7.5 (5.0-8.0); UGLUCOSE NEGATIVE (NEGATIVE)
[2020-11-12 00:46] LABS: *CLARITY,URINE HAZY (CLEAR)
[2020-11-12 00:48] LABS: BACTERIA,URINE MANY /HPF (NONE SEEN); RBC,URINE 80-100 /HPF (0-3); SQUAMOUS EPITHELIAL CELL,UR FEW /HPF (NONE SEEN); WBC,URINE 80-100 /HPF (0-3)
[2020-11-12] MEDS ORDERED: IV NS 1000 ML 1,000 ML IV ONE (01:00)
--- NOTE | 2020-11-12 01:14 | NUR ---
Gave report to YULIET Coreas.
[2020-11-12] MEDS ORDERED: DOXYCYCLINE HYCLATE 100 MG INJ IV ONE (01:15)
[2020-11-12] MEDS ORDERED: VANCOMYCIN IV 200 ML ONE (01:15)
[2020-11-12] MEDS: PIPERACILLIN SODIUM/TAZOBACTAM 3.375 G in IV DEXTROSE 5% 50 ML IV SCH ×4 (02:00→21:31)
[2020-11-12] MEDS ORDERED: PIPERACILLIN SODIUM/TAZO 3.375 GM VIAL ONE (04:47)
[2020-11-12 04:48] VITALS: BP 123/58
--- NOTE | 2020-11-12 06:26 | NUR ---
Pt admitted to Tele in room 318. No distress noted. Pt has productive cough with thick green sputum and was suctioned periodically. IV site is intact. Tolerated all medications given. Pt is AOx1. GT is in place. Hendrix draining clear, harpreet urine. Safety and comfort provided. Will endorse to day shift.
[2020-11-12 06:48] LABS: HEMATOCRIT 28.8 % (31.2-41.9); MEAN CORPUSCULAR HEMOGLOBIN 28.6 uug (24.7-32.8); MEAN CORPUSCULAR VOLUME 93.9 fL (75.5-95.3); PLATELET COUNT (AUTO) 88 K/uL (179-408)
[2020-11-12 06:53] LABS: BILIRUBIN,TOTAL 0.5 mg/dL (0.2-1.0); CREATININE 0.7 mg/dL (0.6-1.3); MAGNESIUM 2.1 mg/dL (1.8-2.4); PHOSPHOROUS 2.7 mg/dL (2.5-4.9); TOTAL PROTEIN, SERUM 5.7 g/dL (6.4-8.2)
[2020-11-12 07:18] LABS: THYROID STIMULATING HORMONE 11.389 mIU/mL (0.358-3.740)
--- NOTE | 2020-11-12 07:30 | NUR ---
RECEIVED PATIENT VERY LETHARGIC, AWAKE WITH PAINFUL STIMULI. NO SS OF PAIN OR DISTRESS. SR ON MONITOR
[2020-11-12 07:53] VITALS: BP 131/65
[2020-11-12] MEDS: PANTOPRAZOLE SODIUM 40 MG VIAL IV SCH (08:10)
[2020-11-12] MEDS: JEVITY 1.2 1000 ML LIQUID GT PRN (08:39)
[2020-11-12 11:14] VITALS: BP 99/70
[2020-11-12] MEDS ORDERED: Z GUARD REMEDY PASTE 57 GM TUBE TOP PRN (12:45)
--- NOTE | 2020-11-12 12:46 | NUR ---
WOUND CARE CONSULT: PT PRESENTS WITH RT HIP STAGE 4 ULCER WHICH IS HEALING WITH DIMPLING AND SCARRING, NO DRAINAGE, PRESENT ON ADMISSION. SACRAL SCARRING NOTED WELL LEFT ARM AND LEG DISCOLORATION, PRESENT ON ADMISSION. DISCUSSED SKIN PROTECTION WITH NURSING STAFF AND KARLEY SILVA WHO SAW PT PREVIOUSLY. MD IN AGREEMENT WITH PLAN OF CARE. Addendum: 11/12/20 at 1248 by KATELYN LLAMAS RN Amended: Links added.
[2020-11-12 14:51] VITALS: BP 104/50
--- NOTE | 2020-11-12 17:48 | NUR ---
SEEN BY TEST CLERK AND HOSPITALIST SEE NOTES. CONTINUE WITH IV ANTIBIOTICS ORDERED, NO REACTION NOTED. AFEBRILE
[2020-11-12 20:20] VITALS: BP 114/53
[2020-11-12] MEDS: Z GUARD REMEDY PASTE 57 GM TUBE TOP SCH (21:32)
[2020-11-13] MEDS: VANCOMYCIN IV 1,000 MG in IV DEXTROSE 5% 250 ML IV SCH (03:04)
[2020-11-13 04:20] VITALS: BP 120/63
--- NOTE | 2020-11-13 05:32 | NUR ---
Patient resting in bed comfortably in no apparent distress noted. Non verbal.Open eyes with O2 at 3 LPM via NC. HOB elevated .Aspiration precaution observed at all times.Gtube in place with Jevity 1.2 running at 65 cc/hr. Tolerated well.Hendrix catheter draining well with clear urine output. Pericare care/skin care rendered.Suctioned PRN and mouth care provided. Iv on right wrist patent and intact.Adm IV ATB as ordered.No a/r noted. VSS
[2020-11-13] MEDS: PIPERACILLIN SODIUM/TAZOBACTAM 3.375 G in IV DEXTROSE 5% 50 ML IV SCH ×2 (06:11→13:51)
[2020-11-13 06:28] LABS: HEMATOCRIT 27.2 % (31.2-41.9); MEAN CORPUSCULAR HEMOGLOBIN 29.3 uug (24.7-32.8); MEAN CORPUSCULAR VOLUME 93.1 fL (75.5-95.3); PLATELET COUNT (AUTO) 75 K/uL (179-408)
[2020-11-13 06:35] LABS: ALANINE AMINOTRANSFERASE 32 U/L (14-59); ALKALINE PHOSPHATASE 197 U/L (50-136); ASPARTATE AMINOTRANSFERASE 17 U/L (15-37); BILIRUBIN,TOTAL 0.3 mg/dL (0.2-1.0); CARBON DIOXIDE 24 mmol/L (21-32); CHLORIDE 112 mmol/L (98-107); CREATININE 0.5 mg/dL (0.6-1.3); GLUCOSE 151 mg/dL (74-106); PHOSPHOROUS 2.3 mg/dL (2.5-4.9); POTASSIUM 3.8 mmol/L (3.5-5.1); TOTAL PROTEIN, SERUM 4.6 g/dL (6.4-8.2); UREA NITROGEN, BLOOD 25 mg/dL (7-18)
[2020-11-13 07:04] LABS: BAND % (MANUAL) 2 % (0-10); EOSINOPHILS % (MANUAL) 4 % (0-8); LYMPHOCYTES % (MANUAL) 7 % (20-40); MONOCYTES % (MANUAL) 9 % (2-10); NEUTROPHILS % (MANUAL) 78 % (42-75)
--- NOTE | 2020-11-13 07:30 | NUR ---
Patient received on air mattress, non-verbal, opens eyes in response to touch. No acute distress noted at this time. Titrated O2 down to 2L and patient saturating at 98% at this time. G-tube in place with feeding held as ordered. Hendrix catheter in place draining clear yellow urine via gravity. Oral care provided. IV on right wrist patent with no redness or swelling noted. Aspiration and fall precautions in place. Will continue to monitor.
[2020-11-13] MEDS: Z GUARD REMEDY PASTE 57 GM TUBE TOP SCH ×2 (08:32→21:00)
[2020-11-13] MEDS: PANTOPRAZOLE SODIUM 40 MG VIAL IV SCH (08:33)
[2020-11-13 10:22] LABS: IRON, SERUM 127 ug/dL (50-175)
--- NOTE | 2020-11-13 11:15 | NUR ---
Titrated O2 down to 1L and oxygen saturation is at 95%. Will continue to monitor and titrate down as needed.
[2020-11-13 12:00] VITALS: BP 105/52
[2020-11-13] MEDS: JEVITY 1.2 1000 ML LIQUID GT PRN (13:51)
[2020-11-13] MEDS ORDERED: NEUTRA PHOS PACKET PO ONE (15:30)
[2020-11-13 16:00] VITALS: BP 126/56
[2020-11-13] MEDS: CEFTRIAXONE 2 G in IV DEXTROSE 5% 100 ML IV SCH (16:10)
[2020-11-13] MEDS ORDERED: BISACODYL 10 MG SUPP.RECT RC PRN (16:15)
[2020-11-13] MEDS ORDERED: FLEET ENEMA 133 ML BOTTLE RC PRN (16:15)
[2020-11-13] MEDS ORDERED: MAGNESIUM HYDROXIDE 30 ML LIQUID UDC PO PRN (16:15)
[2020-11-13] MEDS ORDERED: DOCUSATE SODIUM 100 MG CAPSULE PO SCH (17:00)
[2020-11-13] MEDS: PROTEIN SUPPLEMENT (PROSTAT) 30 ML LIQUID GT SCH (17:06)
[2020-11-13] MEDS: METRONIDAZOLE 500 MG/NS 100ML 500 MG in PREMIXED 1 EACH IV SCH (17:06)
--- NOTE | 2020-11-13 18:23 | NUR ---
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 INFORMED MD BARBOZA WITH NO NEW ORDERS AT THIS TIME.
[2020-11-13 20:18] VITALS: BP 105/45
[2020-11-14] MEDS ORDERED: CEFEPIME HCL 1 G in IV DEXTROSE 5% 50 ML IV SCH
[2020-11-14] MEDS: METRONIDAZOLE 500 MG/NS 100ML 500 MG in PREMIXED 1 EACH IV SCH ×3 (00:42→16:10)
[2020-11-14] MEDS: VANCOMYCIN IV 1,000 MG in IV DEXTROSE 5% 250 ML IV SCH (03:32)
[2020-11-14 04:15] VITALS: BP 123/50
[2020-11-14] MEDS: LEVOTHYROXINE SODIUM 25 MCG TABLET GT SCH (06:11)
[2020-11-14 06:22] LABS: CARBON DIOXIDE 28 mmol/L (21-32); CHLORIDE 113 mmol/L (98-107); CREATININE 0.5 mg/dL (0.6-1.3); GLUCOSE 170 mg/dL (74-106); POTASSIUM 3.8 mmol/L (3.5-5.1); UREA NITROGEN, BLOOD 24 mg/dL (7-18)
[2020-11-14] MEDS ORDERED: PANTOPRAZOLE SODIUM 40 MG TABLET.DR PO SCH (07:00)
--- NOTE | 2020-11-14 07:05 | NUR ---
Patient received on air mattress, non-verbal, opens eyes in response to touch. No acute distress noted at this time.. G-tube in place with feeding continues Hendrix catheter in place draining clear yellow urine via gravity. IV on right wrist patent with no redness or swelling noted. Aspiration and fall precautions in place. Will continue to monitor.
[2020-11-14] MEDS: MULTIVITAMINS,THERAPEUTIC TABLET GT SCH (08:18)
[2020-11-14] MEDS: PANTOPRAZOLE ORAL SUSPENSION 40 MG SUSPDR.PKT GT SCH (08:18)
[2020-11-14] MEDS: ASCORBIC ACID 500 MG TABLET GT SCH (08:18)
[2020-11-14] MEDS: CHOLECALCIFEROL 1,000 UNIT TABLET GT SCH (08:18)
[2020-11-14 08:24] VITALS: BP 136/60
[2020-11-14] MEDS: PROTEIN SUPPLEMENT (PROSTAT) 30 ML LIQUID GT SCH ×3 (08:29→16:14)
[2020-11-14] MEDS: Z GUARD REMEDY PASTE 57 GM TUBE TOP SCH ×2 (08:30→20:11)
[2020-11-14] MEDS: DOCUSATE SODIUM 100 MG/10 ML LIQUID UDC PO SCH ×2 (08:33→16:13)
[2020-11-14] MEDS ORDERED: VITAMIN D3 1000 UNIT GT SCH (09:00)
[2020-11-14] MEDS ORDERED: Medication Not On Formulary EA (Ascorbic Acid (Vitamin C) 500 MG) GT SCH (09:00)
[2020-11-14] MEDS ORDERED: Medication Not On Formulary EA (Multivitamins (Multivitamin) 1 EACH) GT SCH (09:00)
[2020-11-14] MEDS: JEVITY 1.2 1000 ML LIQUID GT PRN (10:07)
[2020-11-14 12:00] VITALS: BP 128/53
[2020-11-14] MEDS: CEFTRIAXONE 2 G in IV DEXTROSE 5% 100 ML IV SCH (15:13)
[2020-11-14 16:02] VITALS: BP 129/54
[2020-11-14] MEDS ORDERED: POTASSIUM PHOSPHATE MM 7.5 MMOL in IV NORMAL SALINE 97.5 ML IV ONE (18:00)
[2020-11-14] MEDS: MUPIROCIN 2% OINT 22 GM TUBE NS SCH (20:10)
[2020-11-14 20:14] VITALS: BP 117/48
[2020-11-14] MEDS: CEFEPIME HCL 1 G in IV DEXTROSE 5% 50 ML IV SCH (23:45)
[2020-11-15] MEDS: METRONIDAZOLE 500 MG/NS 100ML 500 MG in PREMIXED 1 EACH IV SCH ×3 (00:42→17:36)
[2020-11-15] MEDS: JEVITY 1.2 1000 ML LIQUID GT PRN (02:15)
--- NOTE | 2020-11-15 02:52 | NUR ---
Patient resting in bed comfortably in no apparent distress noted. Non verbal.Open eyes with O2 at 1 LPM via NC. HOB elevated .Aspiration precaution observed at all times.Gtube in place with Jevity 1.2 running at 65 cc/hr. Tolerated well.Hendrix catheter draining well with clear urine output. Suctioned PRN and mouth care provided. Iv on right wrist patent and intact. VSS
[2020-11-15] MEDS: VANCOMYCIN IV 1,000 MG in IV DEXTROSE 5% 250 ML IV SCH (03:26)
[2020-11-15 03:32] LABS: HEMATOCRIT 26.2 % (31.2-41.9); MEAN CORPUSCULAR HEMOGLOBIN 28.5 uug (24.7-32.8); MEAN CORPUSCULAR VOLUME 88.8 fL (75.5-95.3); PLATELET COUNT (AUTO) 92 K/uL (179-408)
[2020-11-15 03:41] LABS: ALANINE AMINOTRANSFERASE 25 U/L (14-59); ALKALINE PHOSPHATASE 156 U/L (50-136); ASPARTATE AMINOTRANSFERASE 17 U/L (15-37); BILIRUBIN,TOTAL 0.2 mg/dL (0.2-1.0); CARBON DIOXIDE 27 mmol/L (21-32); CHLORIDE 112 mmol/L (98-107); CREATININE 0.5 mg/dL (0.6-1.3); GLUCOSE 156 mg/dL (74-106); PHOSPHOROUS 2.7 mg/dL (2.5-4.9); POTASSIUM 4.1 mmol/L (3.5-5.1); TOTAL PROTEIN, SERUM 4.9 g/dL (6.4-8.2); UREA NITROGEN, BLOOD 21 mg/dL (7-18)
[2020-11-15 04:41] VITALS: BP 101/48
[2020-11-15] MEDS: LEVOTHYROXINE SODIUM 25 MCG TABLET GT SCH (06:02)
[2020-11-15 06:44] LABS: BAND % (MANUAL) 7 % (0-10); EOSINOPHILS % (MANUAL) 6 % (0-8); LYMPHOCYTES % (MANUAL) 6 % (20-40); METAMYELOCYTES % 5 % (0-1); MONOCYTES % (MANUAL) 5 % (2-10); MYELOCYTES % 4 % (0-0); NEUTROPHILS % (MANUAL) 67 % (42-75)
--- NOTE | 2020-11-15 08:00 | NUR ---
Received report from night court magistrate RN. pt is non verbal, no signs of distress. pt is on 1L Nasal cannula, receives feeding through G tube-- Jevity off at 0600 on at 1000. R hand 22 g IV access has bolanos catheter. will Continue to monitor.
[2020-11-15] MEDS: PANTOPRAZOLE ORAL SUSPENSION 40 MG SUSPDR.PKT GT SCH (09:16)
[2020-11-15] MEDS: DOCUSATE SODIUM 100 MG/10 ML LIQUID UDC PO SCH ×2 (09:16→17:35)
[2020-11-15] MEDS: ASCORBIC ACID 500 MG TABLET GT SCH (09:16)
[2020-11-15] MEDS: CHOLECALCIFEROL 1,000 UNIT TABLET GT SCH (09:16)
[2020-11-15] MEDS: MULTIVITAMINS,THERAPEUTIC TABLET GT SCH (09:27)
[2020-11-15] MEDS: Z GUARD REMEDY PASTE 57 GM TUBE TOP SCH ×2 (09:28→20:12)
[2020-11-15] MEDS: MUPIROCIN 2% OINT 22 GM TUBE NS SCH ×2 (09:29→20:12)
[2020-11-15] MEDS: PROTEIN SUPPLEMENT (PROSTAT) 30 ML LIQUID GT SCH ×3 (09:30→17:36)
[2020-11-15] MEDS: CEFEPIME HCL 1 G in IV DEXTROSE 5% 50 ML IV SCH ×3 (10:24→23:32)
--- NOTE | 2020-11-15 11:00 | NUR ---
Removed and replaced r hand IV 22 gauge. Midline inserted due to multiple attempts at new IV access. pt is stable, will continue to monitor.
[2020-11-15 11:41] VITALS: BP 125/59
--- NOTE | 2020-11-15 12:20 | NUR ---
pt transported to [facility] for MRI to rule out osteomyelitis of right hip.
--- NOTE | 2020-11-15 13:37 | NUR ---
pt returned from MRI at [facility]. vital signs WNL. will continue to monitor
[2020-11-15 15:38] LABS: *OCCULT BLOOD STOOL POSITIVE (NEGATIVE)
[2020-11-15 16:00] VITALS: BP 120/55
[2020-11-15] MEDS: VANCOMYCIN IV 750 MG in IV DEXTROSE 5% 250 ML IV SCH (16:52)
--- NOTE | 2020-11-15 18:42 | NUR ---
Pt tolerated medications and care well. completed wound treatment as ordered. will endorse pt to hr administrative assistant.
[2020-11-15] MEDS ORDERED: VANCOMYCIN IV 1,000 MG in IV DEXTROSE 5% 250 ML IV SCH (22:00)
[2020-11-16] MEDS: METRONIDAZOLE 500 MG/NS 100ML 500 MG in PREMIXED 1 EACH IV SCH ×3 (01:23→18:00)
--- NOTE | 2020-11-16 03:27 | NUR ---
PT AWAKE WHEN TOUCHED, GT IN PLACE, INTACT, NO RESIDUAL NOTED, ZACARIAS INTACT, DWELLING WELL, YELLOW, REPOSITION PT, and CARE DONE.
[2020-11-16] MEDS: VANCOMYCIN IV 750 MG in IV DEXTROSE 5% 250 ML IV SCH ×2 (03:42→17:48)
[2020-11-16] MEDS: LEVOTHYROXINE SODIUM 25 MCG TABLET GT SCH (05:54)
[2020-11-16 06:16] LABS: HEMATOCRIT 26.7 % (31.2-41.9); MEAN CORPUSCULAR HEMOGLOBIN 29.3 uug (24.7-32.8); MEAN CORPUSCULAR VOLUME 89.2 fL (75.5-95.3); PLATELET COUNT (AUTO) 111 K/uL (179-408)
[2020-11-16 07:13] LABS: CARBON DIOXIDE 28 mmol/L (21-32); CHLORIDE 110 mmol/L (98-107); CREATININE 0.4 mg/dL (0.6-1.3); GLUCOSE 166 mg/dL (74-106); MAGNESIUM 1.8 mg/dL (1.8-2.4); PHOSPHOROUS 2.7 mg/dL (2.5-4.9); POTASSIUM 3.8 mmol/L (3.5-5.1); UREA NITROGEN, BLOOD 20 mg/dL (7-18)
--- NOTE | 2020-11-16 07:38 | NUR ---
REPORT GIVEN TO MORNING SHIFT RNSONNY
[2020-11-16] MEDS: ASCORBIC ACID 500 MG TABLET GT SCH (09:56)
[2020-11-16] MEDS: MULTIVITAMINS,THERAPEUTIC TABLET GT SCH (09:56)
[2020-11-16] MEDS: DOCUSATE SODIUM 100 MG/10 ML LIQUID UDC PO SCH ×2 (09:56→17:00)
[2020-11-16] MEDS: PANTOPRAZOLE ORAL SUSPENSION 40 MG SUSPDR.PKT GT SCH (09:56)
[2020-11-16] MEDS: CHOLECALCIFEROL 1,000 UNIT TABLET GT SCH (09:56)
[2020-11-16] MEDS: Z GUARD REMEDY PASTE 57 GM TUBE TOP SCH ×2 (09:58→20:59)
[2020-11-16] MEDS: CEFEPIME HCL 1 G in IV DEXTROSE 5% 50 ML IV SCH ×2 (10:04→17:01)
[2020-11-16] MEDS: PROTEIN SUPPLEMENT (PROSTAT) 30 ML LIQUID GT SCH ×3 (10:04→17:09)
[2020-11-16] MEDS: MUPIROCIN 2% OINT 22 GM TUBE NS SCH ×2 (10:35→20:59)
[2020-11-16 11:46] VITALS: BP 138/57
[2020-11-16 16:00] VITALS: BP 115/47
[2020-11-16 20:09] VITALS: BP 142/64
[2020-11-17] MEDS: CEFEPIME HCL 1 G in IV DEXTROSE 5% 50 ML IV SCH ×4 (00:01→23:29)
[2020-11-17] MEDS: JEVITY 1.2 1000 ML LIQUID GT PRN (00:12)
[2020-11-17] MEDS: METRONIDAZOLE 500 MG/NS 100ML 500 MG in PREMIXED 1 EACH IV SCH ×3 (01:10→17:46)
[2020-11-17 04:43] VITALS: BP 122/66
[2020-11-17] MEDS: VANCOMYCIN IV 750 MG in IV DEXTROSE 5% 250 ML IV SCH ×2 (05:03→16:37)
--- NOTE | 2020-11-17 05:35 | NUR ---
Patient non verbal open eyes only. HOB elevated in no acute distress noted with O2 at 1LPM via Nc. Gtube in place , no residual . Gt feeding tolerated well. Aspiration precaution observed at all times. Suctioned PRn. F/C draining well with clear yellow urine output. No sediments.Changed and repositioned patient.All needs anticipated and met accordingly.
[2020-11-17] MEDS: LEVOTHYROXINE SODIUM 25 MCG TABLET GT SCH (06:12)
--- NOTE | 2020-11-17 07:30 | NUR ---
Patient asleep in bed. On 1L O2 via NC. No signs of acute distress. Gtube in place. Hendrix catheter draining clear, yellow urine. Safety measures provided. Will continue to monitor.
[2020-11-17] MEDS: PANTOPRAZOLE ORAL SUSPENSION 40 MG SUSPDR.PKT GT SCH (08:27)
[2020-11-17] MEDS: CHOLECALCIFEROL 1,000 UNIT TABLET GT SCH (08:27)
[2020-11-17] MEDS: MULTIVITAMINS,THERAPEUTIC TABLET GT SCH (08:27)
[2020-11-17] MEDS: ASCORBIC ACID 500 MG TABLET GT SCH (08:27)
[2020-11-17] MEDS: DOCUSATE SODIUM 100 MG/10 ML LIQUID UDC PO SCH ×2 (08:28→16:08)
[2020-11-17] MEDS: MUPIROCIN 2% OINT 22 GM TUBE NS SCH ×2 (08:30→20:28)
[2020-11-17 08:43] LABS: CARBON DIOXIDE 28 mmol/L (21-32); CHLORIDE 109 mmol/L (98-107); CREATININE 0.5 mg/dL (0.6-1.3); GLUCOSE 117 mg/dL (74-106); MAGNESIUM 1.9 mg/dL (1.8-2.4); PHOSPHOROUS 2.8 mg/dL (2.5-4.9); POTASSIUM 3.7 mmol/L (3.5-5.1); UREA NITROGEN, BLOOD 17 mg/dL (7-18)
[2020-11-17] MEDS: Z GUARD REMEDY PASTE 57 GM TUBE TOP SCH ×2 (08:43→20:28)
[2020-11-17] MEDS: PROTEIN SUPPLEMENT (PROSTAT) 30 ML LIQUID GT SCH ×3 (09:49→16:08)
[2020-11-17 11:52] VITALS: BP 101/56
[2020-11-17 13:07] LABS: HEMATOCRIT 33.4 % (31.2-41.9); MEAN CORPUSCULAR HEMOGLOBIN 29.4 uug (24.7-32.8); MEAN CORPUSCULAR VOLUME 100.2 fL (75.5-95.3); PLATELET COUNT (AUTO) 120 K/uL (179-408)
[2020-11-17 16:04] VITALS: BP 140/65
--- NOTE | 2020-11-17 18:23 | NUR ---
patient currently laying in bed in no acute distress. patient with gt in place and patent, all gt feeding and medication tolerated well. f/c in place and patent, draining clear yellow urine. patient on ongoing iv atb treatment tolerated well with no a/r at this moment, midline to left inner arm in place and patent, dressing appears clean and dry, flushing without resistance. patient with no facial grimacing of pain or discomfort. repositioned q 2 hours and as needed for comfort. kept clean and dry. DTR at bedside at this time. call light within reach, side rails up x2, v/s wnl, will monitor.
[2020-11-17 20:14] VITALS: BP 122/53
[2020-11-18] MEDS: JEVITY 1.2 1000 ML LIQUID GT PRN (01:05)
[2020-11-18] MEDS: METRONIDAZOLE 500 MG/NS 100ML 500 MG in PREMIXED 1 EACH IV SCH ×2 (01:05→09:07)
[2020-11-18] MEDS: VANCOMYCIN IV 750 MG in IV DEXTROSE 5% 250 ML IV SCH (03:57)
[2020-11-18 04:15] VITALS: BP 106/49
--- NOTE | 2020-11-18 04:22 | NUR ---
Patient resting in bed comfortably with 1 LPM dwayne NC saturating well.Midline on left upper arm patent and intact ,continue on ATB therapy no a/r noted.continue on gtube feeding tolerated well. No residual noted. F/c in place.Changed and repositioned patient.Provided skin care and mouth care.HOB remained elevated. Aspiration precaution observed at all times.
[2020-11-18] MEDS: LEVOTHYROXINE SODIUM 25 MCG TABLET GT SCH (06:07)
[2020-11-18] MEDS: CEFEPIME HCL 1 G in IV DEXTROSE 5% 50 ML IV SCH ×2 (07:59→15:04)
[2020-11-18] MEDS: PANTOPRAZOLE ORAL SUSPENSION 40 MG SUSPDR.PKT GT SCH (08:06)
[2020-11-18] MEDS: DOCUSATE SODIUM 100 MG/10 ML LIQUID UDC PO SCH (08:07)
[2020-11-18] MEDS: CHOLECALCIFEROL 1,000 UNIT TABLET GT SCH (08:07)
[2020-11-18] MEDS: MULTIVITAMINS,THERAPEUTIC TABLET GT SCH (08:07)
[2020-11-18] MEDS: ASCORBIC ACID 500 MG TABLET GT SCH (08:07)
[2020-11-18] MEDS: PROTEIN SUPPLEMENT (PROSTAT) 30 ML LIQUID GT SCH (08:07)
[2020-11-18] MEDS: MUPIROCIN 2% OINT 22 GM TUBE NS SCH (08:08)
[2020-11-18] MEDS: Z GUARD REMEDY PASTE 57 GM TUBE TOP SCH (08:08)
[2020-11-18 09:41] LABS: HEMATOCRIT 26.7 % (31.2-41.9); MEAN CORPUSCULAR HEMOGLOBIN 29.3 uug (24.7-32.8); MEAN CORPUSCULAR VOLUME 90.5 fL (75.5-95.3); PLATELET COUNT (AUTO) 120 K/uL (179-408)
[2020-11-18 09:56] LABS: CARBON DIOXIDE 28 mmol/L (21-32); CHLORIDE 107 mmol/L (98-107); CREATININE 0.4 mg/dL (0.6-1.3); GLUCOSE 155 mg/dL (74-106); POTASSIUM 3.7 mmol/L (3.5-5.1); UREA NITROGEN, BLOOD 16 mg/dL (7-18)
[2020-11-18 11:45] VITALS: BP 126/53
[2020-11-18] MEDS ORDERED: LEVO500T90 PO (14:04)
[2020-11-18] MEDS ORDERED: LEVO25TA9 GT (14:04)
[2020-11-18] MEDS ORDERED: DOXY100C5 PO (14:04)
[2020-11-18 14:13] LABS: EOSINOPHILS % (MANUAL) 3 % (0-8); LYMPHOCYTES % (MANUAL) 7 % (20-40); MONOCYTES % (MANUAL) 15 % (2-10); NEUTROPHILS % (MANUAL) 75 % (42-75)
--- NOTE | 2020-11-18 14:51 | NUR ---
report given to jaylin at [facility]
[2020-11-18 15:18] VITALS: BP 131/62
--- NOTE | 2020-11-18 15:42 | NUR ---
patient discharged to [facility], stable condition, midline discontinued, instructions provided, belongings are accounted and signed Addendum: 11/18/20 at 1556 by CHAPO IBARRA RN RN instructions provided to nurse from [facility] for right hip wound care, made aware that patient has multiple skin discolorations. g-tube intact, bolanos catheter intact.
[2020-11-18] MEDS ORDERED: ARGININE/GLUTAMINE/CALCIUM BMB 1 EACH POWD.PACK GT SCH (17:00)
== END 2020-11-18 15:58 | DRG 871 ==
LOC: ER 21:28 → TELE3 11-12 01:28 → MEDSURG3 11-12 11:30
PROVIDERS: ADMIT Internal Medicine; ATTEND Nurse Practitioner Acute Care
PROC: 05H633Z Insertion of Infusion Device into Left Subclavian Vein, Percutaneous Approach (ICD-10-PCS; principal; 2020-11-15)
PROC: B547ZZA Ultrasonography of Left Subclavian Vein, Guidance (ICD-10-PCS; 2020-11-15)
DX: A41.9 Sepsis, unspecified organism (principal); L89.214 Pressure ulcer of right hip, stage 4; E43 Unspecified severe protein-calorie malnutrition; G92 Toxic encephalopathy; J69.0 Pneumonitis due to inhalation of food and vomit; N39.0 Urinary tract infection, site not specified; D68.59 Other primary thrombophilia; L03.115 Cellulitis of right lower limb; K92.2 Gastrointestinal hemorrhage, unspecified; D64.9 Anemia, unspecified; D69.6 Thrombocytopenia, unspecified; E03.9 Hypothyroidism, unspecified; Z20.822 Contact with and (suspected) exposure to COVID-19; Z87.440 Personal history of urinary (tract) infections; Z90.3 Acquired absence of stomach [part of]; Z93.1 Gastrostomy status; F03.90 Unspecified dementia, unspecified severity, without behavioral disturbance, psychotic disturbance, mood disturbance, and anxiety; R13.10 Dysphagia, unspecified; Z74.09 Other reduced mobility; Z68.22 Body mass index [BMI] 22.0-22.9, adult; D72.829 Elevated white blood cell count, unspecified; Z22.322 Carrier or suspected carrier of Methicillin resistant Staphylococcus aureus; R74.8 Abnormal levels of other serum enzymes
CPT/HCPCS: 36415; 70030-TC; 71045; 73502; 83550; 83605; 83690; 83735; 84100; 84443; 85025; 85651; 85730; 86140; 87040; 87070; 87077; 87086; 93005; A4663; A6209; C9113; G0378; J0692; J0696; J2270; J2543; J3370; J3490; J7030; J7060